=== PATIENT | female | born 1975 | race Caucasian/White ===

== ENCOUNTER 2018-02-06 13:34 | Emergency (ER) | payer SELFPAY ==
[2018-02-06 13:48] VITALS: BP 124/84
[2018-02-06] MEDS ORDERED: cefTRIAXone 1 GM Vial IM ONE (14:13)
--- NOTE | 2018-02-06 14:20 | EDM.PDOC ---
ED HPI GENERAL MEDICAL PROBLEM - General Chief Complaint: Genitourinary Problem Stated Complaint: Kidney discomfort, voiding small amounts Time Seen by Provider: 02/06/18 14:09 Source of Information: Reports: Patient History Limitations: Reports: No Limitations - History of Present Illness INITIAL COMMENTS - FREE TEXT/NARRATIVE: One week history of frequency/voiding small amounts in addition to mild back ache and intermittent nausea. No emesis. No bowel changes. Feels like UTI to patient, she has had them in the past. 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 of Kidney Infections Oncologic (Cancer) History: Reports: Cervix - Infectious Disease History Infectious Disease History: Reports: Chicken Pox Social & Family History - Tobacco Use Smoking Status *Q: Current Every Day Smoker Years of Tobacco use: 20 Packs/Tins Daily: 1 Used Tobacco, but Quit: No - Caffeine Use Caffeine Use: Reports: Coffee, Soda - Recreational Drug Use Recreational Drug Use: No ED ROS GENERAL - Review of Systems Review Of Systems: See Below Constitutional: Denies: Fever, Chills, Malaise, Weakness, Fatigue, Night Sweats , Diaphoresis, Decreased Appetite, Weight Loss HEENT: Reports: No Symptoms Respiratory: Reports: No Symptoms Cardiovascular: Reports: No Symptoms GI/Abdominal: Reports: Nausea. Denies: Abdominal Pain, Black Stool, Bloody Stool, Constipation, Diarrhea, Decreased Appetite, Difficulty Swallowing, Distension, Vomiting : Reports: Dysuria, Flank Pain (bilateral back discomfort), Frequency, Urgency. Denies: Hematuria Musculoskeletal: Reports: Back Pain Skin: Reports: No Symptoms Neurological: Reports: No Symptoms Psychiatric: Reports: No Symptoms Hematologic/Lymphatic: Reports: No Symptoms ED EXAM, GI/ABD - Physical Exam Exam: See Below Exam Limited By: No Limitations General Appearance: Alert, WD/WN, No Apparent Distress Eyes: Bilateral: EOMI Nose: No: Nasal Swelling, Nasal Drainage Throat/Mouth: Normal Voice, No Airway Compromise Head: Atraumatic, Normocephalic Neck: Supple Respiratory/Chest: No Respiratory Distress, Lungs Clear, Normal Breath Sounds, No Accessory Muscle Use Cardiovascular: Regular Rate, Rhythm, No Murmur GI/Abdominal Exam: Normal Bowel Sounds, Soft, Non-Tender (Female) Exam: Deferred Rectal (Female) Exam: Deferred Back Exam: No: CVA Tenderness (L), CVA Tenderness (R) Neurological: Alert, Oriented, Normal Cognition, Normal Gait Psychiatric: Normal Affect, Normal Mood Skin Exam: Warm, Dry, Intact, Normal Color Course - Vital Signs Last Recorded V/S: Last Vital Signs Temp 36.4 C 02/06/18 13:47 Pulse 105 H 02/06/18 13:47 Resp 20 02/06/18 13:47 BP 124/84 02/06/18 13:47 Pulse Ox 100 02/06/18 13:47 - Orders/Labs/Meds Orders: Active Orders 24 hr Category Date Time Status CULTURE URINE [RM] Routine Lab 02/06/18 14:13 Ordered Labs: Laboratory Tests 02/06/18 Range/Units 13:37 Specimen Type Urinvoid Urine Color Yellow Urine Appearance Cloudy Urine pH 5.5 (5.0-9.0) Ur Specific [place] 1.025 (1.005-1.030) Urine Protein 30 H (NEGATIVE) mg/dL Urine Glucose (UA) Negative (NEGATIVE) mg/dL Urine Ketones Negative (NEGATIVE) mg/dL Urine Occult Blood Large H (NEGATIVE) Urine Nitrite Negative (NEGATIVE) Urine Bilirubin Negative (NEGATIVE) Urine Urobilinogen 0.2 (0.2-1.0) E.U./dL Ur Leukocyte Esterase Large H (NEGATIVE) Urine RBC 10-20 H /HPF Urine WBC 50-75 H /HPF Ur Epithelial Cells Few /LPF Urine Bacteria Moderate H (NONE TO FEW) /HPF Meds: Medications Discontinued Medications Generic Name Dose Route Start Last Admin Trade Name Freq PRN Reason Stop Dose Admin Ceftriaxone Sodium 1 gm 02/06/18 14:13 02/06/18 14:28 Rocephin IM 02/06/18 14:14 1 gm ONETIME ONE Administration Lidocaine HCl 5 ml 02/06/18 14:14 02/06/18 14:28 Xylocaine-Mpf 1% INJECT 02/06/18 14:15 5 ml ONETIME ONE Administration - Re-Assessments/Exams Free Text/Narrative Re-Assessment/Exam: 02/06/18 14:52 Patient's UA + for UTI. Culture ordered. 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 Because if this, single dose IM Rocephin given. Patient instructed to start PO antibiotics by tomorrow otherwise she is at risk for worsening infection/pyelonephritis. She said that she understood this risk. To follow up as needed PRN worsening or continued symptoms. Departure - Departure Time of Disposition: : Disposition: Home, Self-Care 01 Condition: Good Clinical Impression: UTI, Urinary tract infectious disease - Discharge Information Prescriptions: Nitrofurantoin Monohyd/M-Cryst [Macrobid 100 mg Capsule] 100 mg PO BID #14 capsule Instructions: Ceftriaxone injection, Urinary Tract Infection, Adult, Easy-to- Read Referrals: PCP,Unknown [Primary Care Provider] - Forms: ED Department Discharge Additional Instructions: duplicating machine servicer your antibiotics as soon as possible and begin treatment. You received an antibiotic today in the ER but will still need to do the rest of the treatment. We will call you if the culture results indicate that you need a different antibiotic. Drink plenty of WATER. Avoid sodas/energy drinks as they are hard on the kidneys. Follow up otherwise as needed if symptoms worsen. - My Orders Last 24 Hours: My Active Orders 02/06/18 14:13 CULTURE URINE [RM] Routine - Assessment/Plan Last 24 Hours: My Active Orders 02/06/18 14:13 CULTURE URINE [RM] Routine
== END 2018-02-06 14:48 | disposition home or self-care (01) ==
LOC: LL.ED 13:34
DX: N39.0 Urinary tract infection, site not specified (principal); F17.210 Nicotine dependence, cigarettes, uncomplicated
CPT/HCPCS: 81001; 87086; 96372; 99283; J0696

== ENCOUNTER 2018-02-28 19:35 | Emergency (ER) | payer SELFPAY ==
[2018-02-28 19:52] VITALS: BP 144/91
[2018-02-28] MEDS ORDERED: Bacitracin/Neomycin/Polymyxin B Oint 0.9 GM U/D Packet ONE (20:08)
[2018-02-28] MEDS ORDERED: Bacitracin/Neomycin/Polymyxin B Oint 0.9 GM U/D Packet TOP ONE (20:09)
--- NOTE | 2018-02-28 20:26 | EDM.PDOC ---
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 the laceration is 2 cm Y long by about a centimeter deep at this time it was decided to close the area was prepped and draped in the usual standard form using high declines once the area was cleaned we went ahead and injected her with lidocaine 1% 5 mL patient tolerated it well once this was done 3 interrupted 4-0 nylon's were placed patient tolerated well and will be sent home sutures removed in 10 days Onset: Today Duration: Hour(s): (1 out), Constant Location: Reports: Lower Extremity, Right Quality: Reports: Ache, Burning Severity: Mild Improves with: Reports: None Worsens with: Reports: None Context: Reports: Trauma Associated Symptoms: Reports: No Other Symptoms 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 of Kidney Infections Oncologic (Cancer) History: Reports: Cervix - Infectious Disease History Infectious Disease History: Reports: Chicken Pox Social & Family History - Tobacco Use Smoking Status *Q: Current Every Day Smoker Years of Tobacco use: 20 Packs/Tins Daily: 1 - Caffeine Use Caffeine Use: Reports: Coffee, Soda Review of Systems - Review of Systems Review Of Systems: See Below Constitutional: Reports: No Symptoms Eyes: Reports: No Symptoms Ears: Reports: No Symptoms Nose: Reports: No Symptoms Mouth/Throat: Reports: No Symptoms Respiratory: Reports: No Symptoms Cardiovascular: Reports: No Symptoms GI/Abdominal: Reports: No Symptoms Genitourinary: Reports: No Symptoms Musculoskeletal: Reports: No Symptoms Skin: Reports: No Symptoms Neurological: Reports: No Symptoms Psychiatric: Reports: No Symptoms ED EXAM, GENERAL - Physical Exam Exam: See Below Exam Limited By: No Limitations General Appearance: Alert, WD/WN, No Apparent Distress Ears: Normal External Exam, Normal Canal, Hearing Grossly Normal, Normal TMs Ear Exam: Bilateral Ear: Auricle Normal, Canal Normal, TM normal Nose: Normal Inspection, Normal Mucosa, No Blood Throat/Mouth: Normal Inspection, Normal Lips, Normal Teeth, Normal Gums, Normal Oropharynx, Normal Voice, No Airway Compromise Head: Atraumatic, Normocephalic Neck: Normal Inspection, Supple, Non-Tender, Full Range of Motion Respiratory/Chest: No Respiratory Distress, Lungs Clear, Normal Breath Sounds, No Accessory Muscle Use, Chest Non-Tender Cardiovascular: Normal Peripheral Pulses, Regular Rate, Rhythm, No Edema, No Gallop, No JVD, No Murmur, No Rub GI/Abdominal: Normal Bowel Sounds, Soft, Non-Tender, No Organomegaly, No Distention, No Abnormal Bruit, No Mass (Female) Exam: Deferred Rectal (Female) Exam: Deferred Back Exam: Normal Inspection, Full Range of Motion, NT Extremities: Other (Laceration inner thigh) Neurological: Alert, Oriented, CN II-XII Intact, Normal Cognition, Normal Gait, Normal Reflexes, No Motor/Sensory Deficits ED TRAUMA EXTREMITY PROCEDURES - Laceration/Wound Repair Right Lower Anterior Distal Leg Lac/Wound Length In cm: 2 Appearance: Subcutaneous Distal NVT: Neuro & Vascular Intact Anesthetic Type: Local Local Anesthesia - Lidocaine (Xylocaine): 1% Plain Local Anesthetic Volume: 5cc Skin Prep: Chlorhexidine (Hibiciens) Exploration/Debridement/Repair: Wound Explored, Minimal Debridement Closed With: Sutures Suture Size: 4-0 # of Sutures: 3 Course - Vital Signs Last Recorded V/S: Last Vital Signs Temp 98.8 F 02/28/18 19:51 Pulse 100 02/28/18 19:51 Resp 20 02/28/18 19:51 BP 144/91 H 02/28/18 19:51 Pulse Ox 100 02/28/18 19:51 - Orders/Labs/Meds Meds: Medications Discontinued Medications Generic Name Dose Route Start Last Admin Trade Name Freq PRN Reason Stop Dose Admin Lidocaine HCl 5 ml 02/28/18 20:07 02/28/18 20:15 Xylocaine-Mpf 1% INJECT 02/28/18 20:08 5 ml ONETIME ONE Administration Neomycin/Polymyxin/Bacitracin Confirm 02/28/18 20:08 02/28/18 20:19 Triple Antibiotic Oint Administered 02/28/18 20:09 Not Given Dose 1 each .ROUTE .STK-MED ONE Neomycin/Polymyxin/Bacitracin 1 each 02/28/18 20:09 02/28/18 20:18 Triple Antibiotic Oint TOP 02/28/18 20:10 1 each ONETIME ONE Administration Departure - Departure Time of Disposition: 20:30 Disposition: Home, Self-Care 01 Condition: Good Clinical Impression: Laceration of right lower extremity excluding thigh Qualifiers: Encounter type: initial encounter Qualified Code(s): S81.811A - Laceration without foreign body, right lower leg, initial encounter - Discharge Information Instructions: Laceration Care, Adult Referrals: PCP,None [Primary Care Provider] - Care Plan Goals: Patient will be sent home with wound care instruction apply Neosporin and Band- Aid once daily
== END 2018-02-28 20:47 | disposition home or self-care (01) ==
LOC: LL.ED 19:35
DX: S71.111A Laceration without foreign body, right thigh, initial encounter (principal); W26.9XXA Contact with unspecified sharp object(s), initial encounter; F17.210 Nicotine dependence, cigarettes, uncomplicated; Z87.440 Personal history of urinary (tract) infections
CPT/HCPCS: 12001; 99282; 99283